=== PATIENT | male | born 1970 ===

== ENCOUNTER 2018-07-04 07:34 | Outpatient (CLI) | payer OTHER ==
[~2018-07-04] VITALS: Ht 152.4 cm; Wt 99.3 kg
== END 2018-07-04 07:50 | disposition home or self-care (01) ==
LOC: OFIC 805 07:34
DX: H60.8X3 Other otitis externa, bilateral (principal); H90.41 Sensorineural hearing loss, unilateral, right ear, with unrestricted hearing on the contralateral side; B36.9 Superficial mycosis, unspecified